=== PATIENT | female | born 1960 | race Caucasian/White ===

== ENCOUNTER 2024-09-30 10:01 | Emergency (ER) | payer OTHER, SELFPAY ==
[2024-09-30 10:17] VITALS: BP 141/82
--- NOTE | 2024-09-30 11:02 | ED.GENMED ---
History of Present Illness
General
Chief Complaint: Abdominal Pain
Source: patient
Exam Limitations: none
Time Seen by Provider: 09/30/24 10:46
Nursing documentation reviewed up to this point in time: agreed with
History of Present Illness
History of Present Illness:
63-year-old female with history of HLD, anxiety presents, diverticulitis with colon resection in 2021, presents for 3 days of bloating, pain across her lower abdomen various areas at various times, sometimes pain in upper abdomen also. She has been
having daily BMs but very small, took MiraLAX last night and had 3 small bowel movements, also had a bowel movement this morning. These bowel movements have provided her with a little relief. Denies fever or chills. Denies nausea or vomiting.
She states she had frequent urination throughout the night last night. No dysuria.
Past History
Past History
ED Past Medical History: Other (Previous peptic ulcer disease, diverticulitis)
ED Past Surgical History: Bowel resection (For diverticulitis 2021) and Orthopedic
Social History
Tobacco: Smoker
Alcohol: Occasional
Personal: Partner
Living: with roommate
Employment: Employed
Family History
Family History: Other (Sister with lung cancer. Father and son with appendicitis)
Review of Systems
Review of Systems
Allergies reviewed?: Yes
All Other Systems: ROS reviewed and negative except as documented in HPI and ROS
Constitutional: Denies fever or chills
Cardiac: Denies chest pain
ABD/GI: Reports abdominal pain and constipated; Denies nausea, vomiting, diarrhea, bloody stools, black stools or anorexia
: Reports frequency; Denies dysuria, flank pain or difficulty voiding
Musculoskeletal: Reports no symptoms
Skin: Reports no symptoms
Neurological: Reports no symptoms
Phy Exam
Physical Exam
Physical Exam:
GENERAL: No acute distress. A&Ox3.
CONSTITUTIONAL: Afebrile.
EYES: clear, conjunctivae normal
ENMT: moist mucus membranes, Pharynx nl
RESPIRATORY: Regular respirations, nonlabored, lungs clear.
CARDIOVASCULAR: Regular rate and rhythm, no murmurs, no rubs.
GI: Soft, tender mainly across upper abdomen at this time. normal BS
MUSCULOSKELETAL: Moves with ease. Well perfused.
SKIN: Warm, dry, pink
PSYCH: Normal mood and affect. Well kept, interactive and appropriate
NEUROLOGIC: Awake, alert and oriented. No focal neurological deficits
Course
Orders/Labs/Results
Orders:
Orders
09/30/24 11:08
Complete Blood Count/With Diff Urgent
Comprehensive Metabolic Panel Urgent
Lipase Urgent
09/30/24 11:23
CT Abd/pel W Iv And Oral Contr Urgent
Comment:
Reason For Exam: Generalized abd pain, hx diverticuli w resection
Iohexol [Omnipaque] See Protocol PO NOW STA
09/30/24 11:36
Urinalysis Reflex To Culture Urgent
Date Specimen was Collected: 09/30/24
Time Specimen was Collected: 11:26
Abnormal Lab Results
09/30/24
11:08
WBC 12.2 H 10^3/uL
(4.8-10.8)
MCH 31.7 H pg
(27.0-31.0)
Abs Immat Gran (auto) 0.1 H 10^3/uL
(0-0.05)
Absolute Neuts (auto) 9.1 H 10^3/uL
(1.4-6.5)
Absolute Monos (auto) 0.7 H 10^3/uL
(0.1-0.6)
Lymphocytes % 18.9 L %
(20.5-51.1)
Glucose 102 H mg/dl
(70-99)
09/30/24 11:08
09/30/24 11:08
Vital Signs
Initial and Last Documented VS:
Initial Vital Signs
Temp Pulse Resp BP Pulse Ox
98.9 F 83 16 141/82 98
09/30/24 10:17 09/30/24 10:17 09/30/24 10:17 09/30/24 10:17 09/30/24 10:17
Last Documented Vital Signs
Temp Pulse Resp BP Pulse Ox
98.9 F 72 22 143/59 96
09/30/24 10:17 09/30/24 14:21 09/30/24 14:21 09/30/24 14:21 09/30/24 14:21
MDM/Problems Addressed
Differential Diagnosis Includes:
Diverticulitis, constipation, appendicitis, cholecystitis
MDM/Problems Addressed:
63-year-old female with history of HLD, anxiety presents, diverticulitis with colon resection in 2021, presents for 3 days of bloating, pain across her lower abdomen various areas at various times, sometimes pain in upper abdomen also. She has been
having daily BMs but very small, took MiraLAX last night and had 3 small bowel movements, also had a bowel movement this morning. These bowel movements have provided her with a little relief. Denies fever or chills. Denies nausea or vomiting.
She states she had frequent urination throughout the night last night. No dysuria.
Afebrile, NAD
3:30 PM:
CBC: WBC 12.2
CMP normal
UA negative
CAT scan abdomen pelvis with p.o. and IV contrast radiology report read: IMPRESSION: Findings suggesting probable focal severe acute diverticulitis of the distal transverse colon. No evidence of perforation or abscess formation. Repeat exam in 2-3
weeks recommended after treatment to exclude underlying apple core lesion. New.
Patient is comfortable, pain is minimal
She states she could not tolerate the Cipro and Flagyl given for her last episode of diverticulitis
Prescription for Augmentin sent to her pharmacy
She will follow-up with her GI doctor at [facility].
We discussed the need for a repeat CT scan to exclude apple core lesion
*Critical Care Note
Total Time (30-74mins, 75-104mins- exclusive of procedures): Not Applicable
ED Attending Note
-
Portions of this chart may have been created with voice recognition software.� Occasional wrong word or��sound alike� substitutions may have occurred due to the inherent limitations of voice recognition software.
Discharge Plan
Departure
Patient Disposition: Home (Routine Discharge)
Date of Disposition: 09/30/24
Time of Disposition: 15:45
Patient with high blood pressure during this ER visit?: No
Condition: Fair
Discharge Problem:
Acute diverticulitis
Instructions: Clear Liquid Diet, Diverticulitis (DC)
Prescriptions:
New
amoxicillin-pot clavulanate 875-125 mg tablet
1 tab PO BID Qty: 20 0RF
No Action
simvastatin 20 MG tablet
20 mg PO DAILY
sertraline 25 MG tablet
25 mg PO DAILY
metronidazole 500 MG tablet
500 mg PO TID Qty: 21 0RF
levofloxacin 500 MG tablet
500 mg PO DAILY Qty: 7 0RF
Referrals:
Harvey Wiley, DO [Family Provider, Family Practice]
Activity Restrictions/Additional Instructions:
As we discussed, I sent a prescription to your pharmacy for Augmentin 875 mg to take twice a day for 10 days.
Call your GI doctor at [facility] tomorrow and ask when they want to see you for follow-up.
You should have a repeat CAT scan 2 to 3 weeks after your treatment to reevaluate the area and exclude 'apple core' lesion.
Interventions
Interventions:
*Risk Screen - Suicide Last Done: 09/30/24 10:17
*Neglect/Abuse Screening Last Done: 09/30/24 10:17
*Nursing Disposition Last Done: 09/30/24 16:01
[facility] Assessment Last Done: 09/30/24 11:38
Discharge Date and Time
Discharge Date/Time: 09/30/24 16:01
Print Language: [place]LAND[place]
[2024-09-30] MEDS: OMNIPAQUE 50 ML PO (11:27)
[2024-09-30 11:31] LABS: % Basophils 0.2 % (0-2); % Eosinophils 0.2 % (0-6); % Immature Granulocytes 0.4 % (0-0.5); % Lymphocytes 18.9 % (20.5-51.1); % Monocytes 5.8 % (1.7-9.3); % Neutrophils 74.5 % (42.2-75.2); Absolute Immature Granulocytes 0.1 10^3/uL (0-0.05); Absolute Lymphocytes 2.3 10^3/uL (1.2-3.4); Absolute Monocytes 0.7 10^3/uL (0.1-0.6); Absolute Neutrophils 9.1 10^3/uL (1.4-6.5); Hematocrit 42.6 % (37.0-47.0); Hemoglobin 14.7 g/dL (12.0-16.0); Mean Corp Hgb Conc. 34.5 g/dL (33.0-37.0); Mean Corpuscular Hgb 31.7 pg (27.0-31.0); Mean Corpuscular Volume 91.8 fL (81.0-99.0); Mean Platelet Volume 9.9 fL (7.4-10.4); Nucleated Red Blood Cells % 0 %; Platelet Count 261 10^3/uL (130-400); Red Blood Cell Count 4.64 10^6/uL (4.20-5.40); Red Cell Dist. Width 13.4 % (11.5-14.5); White Blood Cell Count 12.2 10^3/uL (4.8-10.8)
[2024-09-30 11:43] LABS: Urine Albumin Negative (Neg - Trace); Urine Bilirubin Negative (Negative); Urine Character Clear (Clear); Urine Color Yellow; Urine Glucose Negative (Negative); Urine Ketone Negative (Negative); Urine Leukocyte Negative (Negative); Urine Nitrite Negative (Negative); Urine Occult Blood Negative (Negative); Urine Specific Gravity 1.005 (<1.030); Urine Urobilinogen Negative (Neg - 1+)
[2024-09-30 11:47] LABS: ALT (SGPT) 24 U/L (0-35); AST (SGOT) 19 U/L (14-36); Albumin 4.8 g/dl (3.5-5.0); Alkaline Phosphatase 67 U/L (38-126); Blood Urea Nitrogen 13 mg/dl (7-17); Calcium 9.8 mg/dl (8.4-10.2); Carbon Dioxide 25 mmol/L (22-30); Chloride 107 mmol/L (98-107); Glucose 102 mg/dl (70-99); Lipase 57 U/L (23-300); Potassium 4.1 mmol/L (3.5-5.1); Sodium 141 mmol/L (135-145); Total Bilirubin 0.6 mg/dl (0.2-1.3); Total Protein 7.4 g/dl (6.3-8.2); eGFR > 60.00
[2024-09-30 14:17] VITALS: BP 143/59
[2024-09-30 14:21] VITALS: BP 143/59
== END 2024-09-30 16:01 | disposition home or self-care (01) ==
LOC: EMR 10:01
PROVIDERS: Registered Nurse; EMERGENCY PHYSICIAN Student in an Organized Health Care Education/Training Program; FAMILY PHYSICIAN Family Medicine
DX: K57.32 Diverticulitis of large intestine without perforation or abscess without bleeding (principal); F17.200 Nicotine dependence, unspecified, uncomplicated; E78.5 Hyperlipidemia, unspecified; F41.9 Anxiety disorder, unspecified
CPT/HCPCS: 99285; 74177; 80053; 81003; 83690; 85025; Q9967